=== PATIENT | male | born 1950 | race Caucasian/White ===

== ENCOUNTER 2017-01-29 20:30 | Emergency (ER) | payer MEDICARE ==
[~2017-01-29] VITALS: Ht 182.8 cm; Wt 113.4 kg
--- NOTE | ~2017-01-29 | EKG ---
[place], [place] ELECTROCARDIOGRAM REPORT NAME: NICOLE MEEK UNIT #: [id number] ROOM: DOCTOR: ERIN ALVARES MD BIRTHDATE: [birth year] DOS: 01/29/2017 TIME: 2106 hours. Normal sinus rhythm at rate of 77. Voltage criteria for left ventricular hypertrophy. Borderline EKG. ERIN ALVARES MD CM:EKGRPT:ELECTROCARDIOGRAM REPORT [id number] ERIN ALVARES MD
[~2017-01-29 20:30] MED LIST: FLONASE 0.05% 121 EA NAS; LOPRESSOR25 MG PO; NKHM; SALINE MIST 4545 ML NAS; ZITHROMAX Z PA250 MG PO
[2017-01-29 20:49] LABS: BASO # 0.1 10*3/uL (0.0-0.1); BASO % 0.7 % (0.0-1.0); EOS # 0.3 10*3/uL (0.0-0.4); EOS % 4.6 % (1.0-4.0); HEMATOCRIT 46.6 % (42.0-52.0); HEMOGLOBIN 14.9 g/dl (14.0-18.0); LYMPH # 2.6 10*3/uL (1.3-4.4); LYMPH % 36.4 % (27.0-41.0); MEAN CELL VOLUME 91.7 fl (80.0-94.0); MEAN CORPUSCULAR HGB 29.3 pg (27.0-31.0); MEAN PLATELET VOLUME 10.1 fl (9.6-12.3); MONO # 0.8 10*3/uL (0.1-1.0); MONO % 11.4 % (3.0-9.0); NEUT # 3.3 10*3/uL (2.3-7.9); NEUT % 46.6 % (47.0-73.0); PLATELET COUNT AUTOMATED 153 10*3/uL (130-400); RED BLOOD COUNT 5.08 10*6/uL (4.50-5.90); RED CELL DISTRI WIDTH 15.6 % (0-14.5)
[2017-01-29 20:59] LABS: INTERNATIONAL NORM RATIO 1.1 (2.0-3.5); PROTHROMBIN TIME 11.2 SECONDS (9.0-12.4)
[2017-01-29 21:06] LABS: BUN 13 mg/dl (7-24); CARBON DIOXIDE 25 mmol/L (21-32); CHLORIDE 106 mmol/L (98-107); EST GLOM FILT AFRICAN AMERICAN > 60 ml/min; GLUCOSE 99 mg/dL (65-99); MAGNESIUM 2.6 mg/dL (1.5-2.1); SODIUM 143 mmol/L (136-145)
[2017-01-29 21:07] LABS: TROPONIN I < 0.015 ng/ml (<0.045)
[2017-01-29 22:13] LABS: BILIRUBIN NEGATIVE (NEGATIVE); BLOOD TRACE-INTACT (NEGATIVE); CLARITY CLEAR (CLEAR); COLOR YELLOW (YELLOW); GLUCOSE NEGATIVE (NEGATIVE); KETONE NEGATIVE (NEGATIVE); LEUKO ESTERASE NEGATIVE (NEGATIVE); NITRITE NEGATIVE (NEGATIVE); PROTEIN NEGATIVE (NEGATIVE); SPECIFIC GRAVITY <= 1.005 (1.005-1.030); UROBILINOGEN 0.2 E.U./dl (0.2-1.0)
[2017-01-29 22:23] LABS: URINE AMPHETAMINES < 1000 (1000ng/ml); URINE BARBITURATES < 200 (200ng/ml); URINE COCAINE < 300 (300ng/ml)
[2017-01-29 22:28] LABS: URINE REFLEX COMMENT NO (NO)
[2017-01-29 22:34] VITALS: BP 164/88
== END 2017-01-30 00:13 | disposition short-term general hospital (02) ==
LOC: ED 20:30
PROVIDERS: Student in an Organized Health Care Education/Training Program
DX: I60.9 Nontraumatic subarachnoid hemorrhage, unspecified (principal); Z88.0 Allergy status to penicillin; Z79.899 Other long term (current) drug therapy; X58.XXXA Exposure to other specified factors, initial encounter; Y93.89 Activity, other specified; Y92.89 Other specified places as the place of occurrence of the external cause; Y99.9 Unspecified external cause status

== ENCOUNTER 2017-03-01 06:34 | Inpatient (IN) | payer MEDICARE ==
[~2017-03-01] VITALS: Ht 180.3 cm; Wt 90.7 kg
[2017-03-01] VITALS (9 sets, daily range): BP systolic 106–133; BP diastolic 52–79
--- NOTE | ~2017-03-01 | PROC NOTE ---
[place], [place] PROCEDURE NOTE NAME: NICOLE MEEK UNIT #: [id number] ROOM: 406 DOCTOR: RASTA AYALA MD BIRTHDATE: [birth year] DOS: 03/04/2017 PREOPERATIVE DIAGNOSIS: Malnutrition, need for enteral access. POSTOPERATIVE DIAGNOSIS: Malnutrition, need for enteral access. PROCEDURE: Esophagogastroduodenoscopy with percutaneous endoscopic gastrostomy tube placement (20-Danish). SURGEON: Rasta Ayala MD COMMUNICATIONS ADVISOR: DURAN. ANESTHESIA: MAC. INDICATIONS: This is a 66-year-old gentleman with a history of CVA, malnutrition, need for an enteral access, who is here for the above-mentioned procedure. The procedure and its complications were explained to the patient's son in detail preoperatively. Complications that were discussed included, but were not limited to bleeding, gastric perforation and complications related to the PEG and he agreed to proceed. DESCRIPTION OF PROCEDURE: After identifying the patient, the patient was brought to the endoscopy suite and placed in the supine position. After IV sedation was administered, a timeout procedure was called and a bite block was placed. An adult gastroscope was now passed into the esophagus and advanced into the stomach. There was found to be nonspecific generalized gastritis. With the help of transillumination, part on the anterior abdominal wall was chosen for the placement of PEG. Local anesthesia was infiltrated and a small incision with stab knife was made. A needle was inserted and through the anterior abdominal wall, inserted into the gastric lumen which was visualized directly with the help of an endoscope. A guidewire was passed, which was caught with the help of a snare, placed to the gastroscope and pulled out through the mouth. A 28-Danish gastrostomy tube was passed over the wire and pulled out to the anterior abdominal wall and fixed to the anterior abdominal wall with the help of a flange. It was cut to size and a dressing was placed. Followup endoscopy showed that the PEG was in good position. The scope was withdrawn and the patient was taken to the recovery room in a stable fashion. There were no complications. Dr. Rasta Ayala, the attending endoscopist/surgeon, was present throughout the operating case. [place], [place] PROCEDURE NOTE NAME: NICOLE MEEK UNIT #: [id number] ROOM: [facility] DOCTOR: TARA HERNANDEZ,RASTA BIRTHDATE: [birth year] Rasta Ayala MD CM:PROCNOTE:PROCEDURE NOTE [id number] RASTA AYALA MD
[~2017-03-01 06:34] MED LIST changes: +ACETAMINOPHEN325 M2 PO; +B-1100 M1 NG; +DULCOLAX10 M1 RC; +DUONEB 3 MG/3 ML3 M1 INH; +FLEET ADULT ENEM1 EA R; +FLOMAX0.4 MG PO; +KEPPRA100 MG/M1 NG; +LABETALOL HYDR200 MG NG; +LISINOPRIL5 MG NG; +MILK OF MA400 MG/51 PO; +[UNRECOGNIZED DRUG - OTHER] ID
[2017-03-01] MEDS ORDERED: VITAMINS FOR HA1 CAP NG (06:44)
[2017-03-01] MEDS ORDERED: NYSTATIN CREAM15 GM T (06:45)
[2017-03-01 08:45] LABS: BASO # 0.1 10*3/uL (0.0-0.1); BASO % 0.7 % (0.0-1.0); EOS # 0.4 10*3/uL (0.0-0.4); EOS % 4.2 % (1.0-4.0); HEMATOCRIT 38.6 % (42.0-52.0); HEMOGLOBIN 12.1 g/dl (14.0-18.0); LYMPH # 2.6 10*3/uL (1.3-4.4); LYMPH % 29.3 % (27.0-41.0); MEAN CELL VOLUME 95.1 fl (80.0-94.0); MEAN CORPUSCULAR HGB 29.8 pg (27.0-31.0); MEAN CORPUSCULAR HGB CONC 31.3 g/dl (33.0-37.0); MEAN PLATELET VOLUME 12.8 fl (9.6-12.3); MONO # 0.7 10*3/uL (0.1-1.0); MONO % 7.9 % (3.0-9.0); NEUT # 5.2 10*3/uL (2.3-7.9); NEUT % 57.6 % (47.0-73.0); PLATELET COUNT AUTOMATED 183 10*3/uL (130-400); RED BLOOD COUNT 4.06 10*6/uL (4.50-5.90); RED CELL DISTRI WIDTH 14.9 % (0-14.5)
[2017-03-01 08:57] LABS: INTERNATIONAL NORM RATIO 1.1 (2.0-3.5)
[2017-03-01 09:01] LABS: ALBUMIN 3.2 gm/dl (3.1-4.5); ALKALINE PHOSPHATASE 116 U/L (45-117); BILIRUBIN, TOTAL 0.4 mg/dl (0.2-1.0); BUN 66 mg/dl (7-24); C-REACTIVE PROTEIN 1.02 MG/DL (0-0.3); CARBON DIOXIDE 27 mmol/L (21-32); CHLORIDE 117 mmol/L (98-107); CKMB 0.8 ng/ml (0.5-3.6); CPK 193 U/L (39-308); EST GLOM FILT AFRICAN AMERICAN > 60 ml/min; GLUCOSE 103 mg/dL (65-99); MAGNESIUM 2.9 mg/dL (1.5-2.1); POTASSIUM 4.3 mmol/L (3.5-5.1); SGOT/AST 77 IU/L (3-35); SGPT/ALT 101 U/L (12-78); SODIUM 154 mmol/L (136-145); TOTAL PROTEIN 8.7 gm/dL (6.4-8.2)
[2017-03-01 09:02] LABS: TROPONIN I < 0.015 ng/ml (<0.045)
[2017-03-01 09:19] LABS: BILIRUBIN NEGATIVE (NEGATIVE); BLOOD NEGATIVE (NEGATIVE); CLARITY SL CLOUDY (CLEAR); COLOR YELLOW (YELLOW); GLUCOSE NEGATIVE (NEGATIVE); KETONE NEGATIVE (NEGATIVE); LEUKO ESTERASE NEGATIVE (NEGATIVE); NITRITE NEGATIVE (NEGATIVE); PH 5.5 (5.0-9.0); PROTEIN TRACE (NEGATIVE); SPECIFIC GRAVITY 1.025 (1.005-1.030); UROBILINOGEN 0.2 E.U./dl (0.2-1.0)
[2017-03-01 09:28] LABS: BACTERIA 1+
[2017-03-01 09:29] LABS: HYALINE CAST 21-30; MUCOUS 1+; URINE REFLEX COMMENT NO (NO)
[2017-03-01 18:10] LABS: CKMB 1.1 ng/ml (0.5-3.6); CPK 192 U/L (39-308)
[2017-03-01 18:11] LABS: TROPONIN I < 0.015 ng/ml (<0.045)
[2017-03-01] MEDS ORDERED: LOPRESSOR25 MG PO (18:18)
[2017-03-02] VITALS: BP 145/70
[2017-03-02 00:38] LABS: CKMB 1.1 ng/ml (0.5-3.6); CPK 207 U/L (39-308); TROPONIN I < 0.015 ng/ml (<0.045)
[2017-03-02 06:16] LABS: BASO % 0.4 % (0.0-1.0); EOS # 0.4 10*3/uL (0.0-0.4); EOS % 4.6 % (1.0-4.0); HEMATOCRIT 35.3 % (42.0-52.0); HEMOGLOBIN 10.9 g/dl (14.0-18.0); LYMPH # 2.4 10*3/uL (1.3-4.4); LYMPH % 28.7 % (27.0-41.0); MEAN CELL VOLUME 94.4 fl (80.0-94.0); MEAN CORPUSCULAR HGB 29.1 pg (27.0-31.0); MEAN CORPUSCULAR HGB CONC 30.9 g/dl (33.0-37.0); MEAN PLATELET VOLUME 12.2 fl (9.6-12.3); MONO # 0.8 10*3/uL (0.1-1.0); MONO % 9.4 % (3.0-9.0); NEUT # 4.8 10*3/uL (2.3-7.9); NEUT % 56.7 % (47.0-73.0); PLATELET COUNT AUTOMATED 155 10*3/uL (130-400); RED BLOOD COUNT 3.74 10*6/uL (4.50-5.90); RED CELL DISTRI WIDTH 14.6 % (0-14.5); WHITE BLOOD COUNT 8.4 10*3/uL (4.8-10.8)
[2017-03-02 06:26] LABS: CKMB 0.8 ng/ml (0.5-3.6); CPK 205 U/L (39-308)
[2017-03-02 06:29] LABS: TROPONIN I < 0.015 ng/ml (<0.045)
[2017-03-02 06:41] LABS: INTERNATIONAL NORM RATIO 1.1 (2.0-3.5); PROTHROMBIN TIME 12.2 SECONDS (9.0-12.4)
[2017-03-02 06:41] LABS: BILIRUBIN, TOTAL 0.8 mg/dl (0.2-1.0); CARBON DIOXIDE 28 mmol/L (21-32); CHLORIDE 111 mmol/L (98-107); CHOLESTEROL 105 mg/dL (<200); EST GLOM FILT AFRICAN AMERICAN > 60 ml/min; GLUCOSE 105 mg/dL (65-99); MAGNESIUM 2.5 mg/dL (1.5-2.1); PHOSPHOROUS 3.1 mg/dL (2.5-4.9); POTASSIUM 3.6 mmol/L (3.5-5.1); SGOT/AST 72 IU/L (3-35); SGPT/ALT 93 U/L (12-78); SODIUM 148 mmol/L (136-145)
[2017-03-02 06:48] LABS: ALKALINE PHOSPHATASE 103 U/L (45-117); HDL CHOLESTEROL 31 mg/dl (40-60); LDL CHOLESTEROL 55 mg/dL (9-159); TRIGLYCERIDES 94 mg/dl (<150); VLDL CHOLESTEROL 19 mg/dL (6-40)
[2017-03-02 06:50] LABS: BUN 43 mg/dl (7-24)
[2017-03-02 08:00] VITALS: BP 150/72
[2017-03-02 08:05] LABS: VITAMIN D, 25-HYDROXY 22.5 ng/mL (30-100)
[2017-03-02 08:06] LABS: FOLIC ACID 18.39 ng/mL (>5.38)
[2017-03-02 12:00] VITALS: BP 128/73; BP 142/80
[2017-03-02 15:57] VITALS: BP 127/51
[2017-03-02 20:00] VITALS: BP 126/63
[2017-03-03] VITALS: BP 135/69
[2017-03-03 06:10] LABS: BASO % 0.3 % (0.0-1.0); EOS # 0.3 10*3/uL (0.0-0.4); EOS % 3.6 % (1.0-4.0); HEMATOCRIT 35.4 % (42.0-52.0); HEMOGLOBIN 11.1 g/dl (14.0-18.0); LYMPH # 2.5 10*3/uL (1.3-4.4); LYMPH % 32.1 % (27.0-41.0); MEAN CELL VOLUME 92.7 fl (80.0-94.0); MEAN CORPUSCULAR HGB 29.1 pg (27.0-31.0); MEAN CORPUSCULAR HGB CONC 31.4 g/dl (33.0-37.0); MEAN PLATELET VOLUME 12.5 fl (9.6-12.3); MONO # 0.8 10*3/uL (0.1-1.0); MONO % 9.8 % (3.0-9.0); NEUT # 4.2 10*3/uL (2.3-7.9); NEUT % 53.8 % (47.0-73.0); PLATELET COUNT AUTOMATED 138 10*3/uL (130-400); RED BLOOD COUNT 3.82 10*6/uL (4.50-5.90); RED CELL DISTRI WIDTH 14.2 % (0-14.5); WHITE BLOOD COUNT 7.9 10*3/uL (4.8-10.8)
[2017-03-03 06:26] LABS: ALBUMIN 2.9 gm/dl (3.1-4.5); ALKALINE PHOSPHATASE 106 U/L (45-117); BILIRUBIN, TOTAL 1.2 mg/dl (0.2-1.0); CARBON DIOXIDE 27 mmol/L (21-32); CHLORIDE 105 mmol/L (98-107); EST GLOM FILT AFRICAN AMERICAN > 60 ml/min; GLUCOSE 98 mg/dL (65-99); POTASSIUM 3.4 mmol/L (3.5-5.1); SGOT/AST 75 IU/L (3-35); SGPT/ALT 89 U/L (12-78); SODIUM 140 mmol/L (136-145); TOTAL PROTEIN 7.9 gm/dL (6.4-8.2)
[2017-03-03 06:33] LABS: BUN 26 mg/dl (7-24)
[2017-03-03 08:00] VITALS: BP 148/68
[2017-03-03 12:00] VITALS: BP 138/74
[2017-03-03 16:00] VITALS: BP 135/68
[2017-03-03 20:00] VITALS: BP 133/72
[2017-03-04] VITALS (9 sets, daily range): BP systolic 124–161; BP diastolic 61–87
[2017-03-04 06:03] LABS: BASO % 0.3 % (0.0-1.0); EOS # 0.2 10*3/uL (0.0-0.4); EOS % 3.1 % (1.0-4.0); HEMATOCRIT 34.8 % (42.0-52.0); HEMOGLOBIN 11.3 g/dl (14.0-18.0); LYMPH # 1.9 10*3/uL (1.3-4.4); LYMPH % 25.3 % (27.0-41.0); MEAN CELL VOLUME 93.3 fl (80.0-94.0); MEAN CORPUSCULAR HGB 30.3 pg (27.0-31.0); MEAN CORPUSCULAR HGB CONC 32.5 g/dl (33.0-37.0); MEAN PLATELET VOLUME 12.4 fl (9.6-12.3); MONO # 0.9 10*3/uL (0.1-1.0); MONO % 11.8 % (3.0-9.0); NEUT # 4.4 10*3/uL (2.3-7.9); NEUT % 59.4 % (47.0-73.0); NUCLEATED RED BLOOD CELL 0.3 % (0.0-0.0); PLATELET COUNT AUTOMATED 142 10*3/uL (130-400); RED BLOOD COUNT 3.73 10*6/uL (4.50-5.90); RED CELL DISTRI WIDTH 13.8 % (0-14.5); WHITE BLOOD COUNT 7.4 10*3/uL (4.8-10.8)
[2017-03-04 06:04] LABS: ALKALINE PHOSPHATASE 106 U/L (45-117); CARBON DIOXIDE 28 mmol/L (21-32); CHLORIDE 102 mmol/L (98-107); EST GLOM FILT AFRICAN AMERICAN > 60 ml/min; GLUCOSE 93 mg/dL (65-99); POTASSIUM 3.4 mmol/L (3.5-5.1); SGOT/AST 79 IU/L (3-35); SGPT/ALT 95 U/L (12-78); SODIUM 138 mmol/L (136-145)
[2017-03-04 06:06] LABS: BUN 12 mg/dl (7-24)
[2017-03-05] VITALS (8 sets, daily range): BP systolic 89–152; BP diastolic 49–78
[2017-03-05 06:12] LABS: BASO % 0.2 % (0.0-1.0); EOS # 0.1 10*3/uL (0.0-0.4); EOS % 1.4 % (1.0-4.0); HEMATOCRIT 35.6 % (42.0-52.0); HEMOGLOBIN 11.7 g/dl (14.0-18.0); LYMPH # 1.9 10*3/uL (1.3-4.4); LYMPH % 20.4 % (27.0-41.0); MEAN CORPUSCULAR HGB 29.9 pg (27.0-31.0); MEAN CORPUSCULAR HGB CONC 32.9 g/dl (33.0-37.0); MONO # 1.1 10*3/uL (0.1-1.0); MONO % 11.6 % (3.0-9.0); NEUT % 66.2 % (47.0-73.0); PLATELET COUNT AUTOMATED 142 10*3/uL (130-400); RED BLOOD COUNT 3.91 10*6/uL (4.50-5.90); WHITE BLOOD COUNT 9.1 10*3/uL (4.8-10.8)
[2017-03-05 06:35] LABS: ALKALINE PHOSPHATASE 116 U/L (45-117); BILIRUBIN, TOTAL 0.9 mg/dl (0.2-1.0); BUN 8 mg/dl (7-24); CARBON DIOXIDE 24 mmol/L (21-32); CHLORIDE 102 mmol/L (98-107); EST GLOM FILT AFRICAN AMERICAN > 60 ml/min; GLUCOSE 133 mg/dL (65-99); MAGNESIUM 1.8 mg/dL (1.5-2.1); PHOSPHOROUS 2.4 mg/dL (2.5-4.9); POTASSIUM 3.3 mmol/L (3.5-5.1); SGOT/AST 69 IU/L (3-35); SGPT/ALT 88 U/L (12-78); SODIUM 136 mmol/L (136-145)
[2017-03-06] VITALS: BP 129/63
[2017-03-06 06:07] VITALS: BP 140/67
[2017-03-06 06:45] LABS: ALBUMIN 2.8 gm/dl (3.1-4.5); BUN 9 mg/dl (7-24); CARBON DIOXIDE 25 mmol/L (21-32); CHLORIDE 105 mmol/L (98-107); GLUCOSE 119 mg/dL (65-99); MAGNESIUM 1.8 mg/dL (1.5-2.1); POTASSIUM 3.8 mmol/L (3.5-5.1); SGOT/AST 55 IU/L (3-35); SODIUM 139 mmol/L (136-145)
[2017-03-06 06:51] LABS: ALKALINE PHOSPHATASE 115 U/L (45-117); BILIRUBIN, TOTAL 0.5 mg/dl (0.2-1.0); EST GLOM FILT AFRICAN AMERICAN > 60 ml/min; PHOSPHOROUS 2.5 mg/dL (2.5-4.9); SGPT/ALT 74 U/L (12-78); TOTAL PROTEIN 7.5 gm/dL (6.4-8.2)
[2017-03-06 08:00] VITALS: BP 124/67
[2017-03-06] MEDS ORDERED: [UNRECOGNIZED DRUG - OTHER] PEG (11:34)
== END 2017-03-06 13:10 | disposition other institution (70) | DRG 682 ==
LOC: ED 06:34 → EDHOLD 10:07 → 4E 10:07
PROVIDERS: Emergency Medicine; Family Medicine; Internal Medicine
PROC: 0DH63UZ Insertion of Feeding Device into Stomach, Percutaneous Approach (ICD-10-PCS; principal; 2017-03-04)
DX: N17.0 Acute kidney failure with tubular necrosis (principal); G93.41 Metabolic encephalopathy; E87.0 Hyperosmolality and hypernatremia; E44.0 Moderate protein-calorie malnutrition; I95.9 Hypotension, unspecified; R13.19 Other dysphagia; E86.0 Dehydration; R74.0 Nonspecific elevation of levels of transaminase and lactic acid dehydrogenase [LDH]; D53.9 Nutritional anemia, unspecified; I10 Essential (primary) hypertension; K29.70 Gastritis, unspecified, without bleeding; E55.9 Vitamin D deficiency, unspecified; E87.6 Hypokalemia; Z22.322 Carrier or suspected carrier of Methicillin resistant Staphylococcus aureus; Z86.73 Personal history of transient ischemic attack (TIA), and cerebral infarction without residual deficits; Z88.0 Allergy status to penicillin; Z79.1 Long term (current) use of non-steroidal anti-inflammatories (NSAID); Z79.899 Other long term (current) drug therapy; Z68.29 Body mass index [BMI] 29.0-29.9, adult

== ENCOUNTER 2017-03-19 17:56 | Inpatient (IN) | payer MEDICARE ==
[~2017-03-19] VITALS: Ht 177.8 cm; Wt 94.8 kg
--- NOTE | ~2017-03-19 | PROC NOTE ---
[place], [place] PROCEDURE NOTE NAME: NICOLE MEEK UNIT #: [id number] ROOM: 410 DOCTOR: JUAN GUERRIER BIRTHDATE: [birth year] DOS: 03/21/2017 MODIFIED BARIUM SWALLOW LOCATION: [facility], room 410, bed 1. DOCTOR: Dr. Castillo. RADIOLOGIST: Dr. Fernandes. BACKGROUND INFORMATION: The patient, a 66-year-old male, was seen for modified barium swallow. This test was ordered to determine candidacy for resumption of p.o. intake. This patient has been n.p.o. and fed by PEG tube since 03/04/2017 due to CVA, reports indicate that although he has a PEG tube that he had not been using it at the [facility] rather had been eating by mouth. Further medical history includes right weakness from CVA, hypertension, dehydration, pain in abdomen and acute renal failure and aphasia. For today's assessment, the patient was alert and able to follow commands. He was cooperative throughout the examination. The patient was receiving oxygen via nasal cannula. Oral peripheral examination revealed presence of natural teeth. Lingual, labial, and buccal skills were within functional limits. Volitional swallow was adequate. Volitional cough was weak. METHODS AND MATERIALS USED FOR THE EXAM: The patient was positioned in the lateral plane and the exam was viewed under fluoroscopy. The patient was presented with a variety of consistencies to assess swallowing skills including applesauce mixed with barium presented in half teaspoon amount. Barium-coated cookie presented in bite size piece and thin liquid barium taken by cup and straw. ORAL PHASE: Unremarkable. PHARYNGEAL PHASE: The pharyngeal swallow occurred within a timely manner. During the swallow, laryngeal elevation and epiglottic function were adequate. No penetration or aspiration occurred with any consistency. Some premature loss into the vallecula was noted with thin liquid taken by straw with a mild delay in initiation. ESOPHAGEAL PHASE: This phase of the swallow was not formally assessed during this examination. IMPRESSIONS AND RECOMMENDATIONS: Based upon assessment results, this 66-year-old patient presents with safe tolerance for pureed, solid and thin liquid consistencies. Recommend he resume p.o. feeding with a regular diet and thin liquids. Recommend that he consume thin liquids by cup only with avoidance of straws for safety. Recommend use of universal safe swallow precautions. Follow up therapy is recommended to ensure safety of diet through education and use of safe swallow strategies. Thank you very much for this referral. Should you have any questions regarding [place], [place] PROCEDURE NOTE NAME: NICOLE MEEK UNIT #: [id number] ROOM: 410 DOCTOR: JUAN GUERRIER BIRTHDATE: [birth year] this patient, please contact the speech pathologist at [phone]. JUAN GUERRIER CM:PROCNOTE:PROCEDURE NOTE [id number] JUAN GUERRIER
[2017-03-19 17:56] VITALS: BP 120/59
[~2017-03-19 17:56] MED LIST changes: +NYSTATIN CREAM15 GM T; +VITAMINS FOR HA1 CAP NG; +[UNRECOGNIZED DRUG - OTHER] PEG
[2017-03-19] MEDS ORDERED: MULTIPLE VITAMI1 TA3 PO (18:21)
[2017-03-19] MEDS ORDERED: Peridex 473 ML473 ML PO (18:22)
[2017-03-19] MEDS ORDERED: THIAMINE HCL100 MG PO (18:23)
[2017-03-19] MEDS ORDERED: TYLENOL325 M1 PO (18:23)
[2017-03-19 18:48] LABS: BASO % 0.3 % (0.0-1.0); EOS # 0.1 10*3/uL (0.0-0.4); EOS % 0.5 % (1.0-4.0); HEMATOCRIT 32.8 % (42.0-52.0); HEMOGLOBIN 10.5 g/dl (14.0-18.0); LYMPH # 1.9 10*3/uL (1.3-4.4); LYMPH % 17.6 % (27.0-41.0); MEAN CELL VOLUME 92.4 fl (80.0-94.0); MEAN CORPUSCULAR HGB 29.6 pg (27.0-31.0); MONO # 1.3 10*3/uL (0.1-1.0); MONO % 12.4 % (3.0-9.0); NEUT # 7.3 10*3/uL (2.3-7.9); NEUT % 68.8 % (47.0-73.0); PLATELET COUNT AUTOMATED 155 10*3/uL (130-400); RED BLOOD COUNT 3.55 10*6/uL (4.50-5.90); RED CELL DISTRI WIDTH 15.1 % (0-14.5); WHITE BLOOD COUNT 10.5 10*3/uL (4.8-10.8)
[2017-03-19 19:04] LABS: ALBUMIN 3.1 gm/dl (3.1-4.5); ALKALINE PHOSPHATASE 80 U/L (45-117); BILIRUBIN, DIRECT 0.3 mg/dL (0.0-0.2); BUN 18 mg/dl (7-24); CARBON DIOXIDE 24 mmol/L (21-32); CHLORIDE 110 mmol/L (98-107); EST GLOM FILT AFRICAN AMERICAN > 60 ml/min; GLUCOSE 108 mg/dL (65-99); POTASSIUM 4.1 mmol/L (3.5-5.1); SGOT/AST 31 IU/L (3-35); SGPT/ALT 39 U/L (12-78); SODIUM 144 mmol/L (136-145); TOTAL PROTEIN 7.7 gm/dL (6.4-8.2)
[2017-03-19 19:19] VITALS: BP 109/57
[2017-03-19 22:20] LABS: BILIRUBIN 1+ (NEGATIVE); BLOOD TRACE-INTACT (NEGATIVE); CLARITY SL CLOUDY (CLEAR); COLOR YELLOW (YELLOW); GLUCOSE NEGATIVE (NEGATIVE); KETONE TRACE (NEGATIVE); LEUKO ESTERASE NEGATIVE (NEGATIVE); NITRITE NEGATIVE (NEGATIVE); PH 5.5 (5.0-9.0); PROTEIN 1+ (NEGATIVE); SPECIFIC GRAVITY 1.015 (1.005-1.030)
[2017-03-19 22:35] LABS: BACTERIA 1+; EPITHELIAL CELLS 0-2; MUCOUS TRACE; RBC 0-2 rbc/hpf (0-2); URINE REFLEX COMMENT YES (NO)
[2017-03-19 23:39] VITALS: BP 127/73
[2017-03-20] VITALS: BP 153/63
[2017-03-20] MEDS ORDERED: NYSTATIN OINTME30 GM PO (00:33)
[2017-03-20 00:45] LABS: CPK 173 U/L (39-308)
[2017-03-20 00:48] LABS: CKMB < 0.5 ng/ml (0.5-3.6)
[2017-03-20 06:26] LABS: BASO % 0.2 % (0.0-1.0); EOS # 0.1 10*3/uL (0.0-0.4); EOS % 0.7 % (1.0-4.0); HEMATOCRIT 29.4 % (42.0-52.0); HEMOGLOBIN 9.5 g/dl (14.0-18.0); LYMPH # 1.6 10*3/uL (1.3-4.4); LYMPH % 19.8 % (27.0-41.0); MEAN CORPUSCULAR HGB 30.1 pg (27.0-31.0); MEAN CORPUSCULAR HGB CONC 32.3 g/dl (33.0-37.0); MEAN PLATELET VOLUME 10.2 fl (9.6-12.3); MONO % 11.8 % (3.0-9.0); NEUT # 5.4 10*3/uL (2.3-7.9); NEUT % 67.3 % (47.0-73.0); PLATELET COUNT AUTOMATED 123 10*3/uL (130-400); RED BLOOD COUNT 3.16 10*6/uL (4.50-5.90); RED CELL DISTRI WIDTH 14.8 % (0-14.5); WHITE BLOOD COUNT 8.1 10*3/uL (4.8-10.8)
[2017-03-20 06:35] LABS: INTERNATIONAL NORM RATIO 1.3 (2.0-3.5); PROTHROMBIN TIME 13.5 SECONDS (9.0-12.4)
[2017-03-20 06:43] LABS: CKMB < 0.5 ng/ml (0.5-3.6); CPK 126 U/L (39-308)
[2017-03-20 06:59] LABS: ALBUMIN 2.5 gm/dl (3.1-4.5); BILIRUBIN, TOTAL 1.1 mg/dl (0.2-1.0); BUN 14 mg/dl (7-24); CARBON DIOXIDE 24 mmol/L (21-32); CHLORIDE 111 mmol/L (98-107); CHOLESTEROL 79 mg/dL (<200); EST GLOM FILT AFRICAN AMERICAN > 60 ml/min; GLUCOSE 87 mg/dL (65-99); HDL CHOLESTEROL 26 mg/dl (40-60); LDL CHOLESTEROL 40 mg/dL (9-159); PHOSPHOROUS 3.1 mg/dL (2.5-4.9); POTASSIUM 3.8 mmol/L (3.5-5.1); SGOT/AST 27 IU/L (3-35); SGPT/ALT 29 U/L (12-78); SODIUM 143 mmol/L (136-145); TOTAL PROTEIN 6.6 gm/dL (6.4-8.2); TRIGLYCERIDES 66 mg/dl (<150); VLDL CHOLESTEROL 13 mg/dL (6-40)
[2017-03-20 07:05] LABS: ALKALINE PHOSPHATASE 66 U/L (45-117); FREE T4 1.22 ng/dl (0.76-1.46); HEMOGLOBIN A1c 6.2 % (4.8-5.6)
[2017-03-20 07:56] LABS: FOLIC ACID 23.86 ng/mL (>5.38); VITAMIN D, 25-HYDROXY 27.3 ng/mL (30-100)
[2017-03-20 08:00] VITALS: BP 121/67
[2017-03-20 12:00] VITALS: BP 131/58
[2017-03-20] MEDS ORDERED: NYSTATIN CREAM15 GM T (15:45)
[2017-03-20 16:00] VITALS: BP 156/68
[2017-03-20 20:00] VITALS: BP 136/65
[2017-03-21] VITALS: BP 149/70
[2017-03-21 06:54] LABS: BUN 8 mg/dl (7-24); CARBON DIOXIDE 24 mmol/L (21-32); CHLORIDE 107 mmol/L (98-107); EST GLOM FILT AFRICAN AMERICAN > 60 ml/min; GLUCOSE 94 mg/dL (65-99); POTASSIUM 3.2 mmol/L (3.5-5.1); SODIUM 141 mmol/L (136-145)
[2017-03-21 07:58] VITALS: BP 120/54
[2017-03-21 12:00] VITALS: BP 132/56
[2017-03-21 16:00] VITALS: BP 140/60
[2017-03-22] VITALS: BP 159/81
[2017-03-22 07:02] LABS: BASO % 0.4 % (0.0-1.0); EOS # 0.2 10*3/uL (0.0-0.4); EOS % 3.4 % (1.0-4.0); HEMATOCRIT 30.7 % (42.0-52.0); HEMOGLOBIN 9.8 g/dl (14.0-18.0); LYMPH # 1.3 10*3/uL (1.3-4.4); LYMPH % 28.9 % (27.0-41.0); MEAN CELL VOLUME 92.5 fl (80.0-94.0); MEAN CORPUSCULAR HGB 29.5 pg (27.0-31.0); MEAN CORPUSCULAR HGB CONC 31.9 g/dl (33.0-37.0); MEAN PLATELET VOLUME 10.6 fl (9.6-12.3); MONO # 0.5 10*3/uL (0.1-1.0); MONO % 10.1 % (3.0-9.0); NEUT # 2.6 10*3/uL (2.3-7.9); PLATELET COUNT AUTOMATED 131 10*3/uL (130-400); RED BLOOD COUNT 3.32 10*6/uL (4.50-5.90); RED CELL DISTRI WIDTH 14.5 % (0-14.5); WHITE BLOOD COUNT 4.6 10*3/uL (4.8-10.8)
[2017-03-22 07:26] LABS: BUN 6 mg/dl (7-24); CARBON DIOXIDE 28 mmol/L (21-32); CHLORIDE 107 mmol/L (98-107); EST GLOM FILT AFRICAN AMERICAN > 60 ml/min; GLUCOSE 97 mg/dL (65-99); POTASSIUM 3.5 mmol/L (3.5-5.1); SODIUM 143 mmol/L (136-145)
[2017-03-22 08:00] VITALS: BP 138/68
[2017-03-22] MEDS ORDERED: D-1000 185 MG-11 TAB PEG (14:08)
[2017-03-22] MEDS ORDERED: BACTRIM 400 MG-1 TAB PO (14:11)
[2017-03-22] MEDS ORDERED: KEFLEX500 M1 PO (14:11)
== END 2017-03-22 16:45 | disposition other institution (70) | DRG 871 ==
LOC: ED 17:56 → ICCU 23:03 → 4E 23:03 → EDHOLD 23:10 → 4E 23:15
PROVIDERS: Emergency Medicine; Hospitalist; Internal Medicine
PROC: BD11YZZ Fluoroscopy of Esophagus using Other Contrast (ICD-10-PCS; principal; 2017-03-21)
DX: A41.9 Sepsis, unspecified organism (principal); E43 Unspecified severe protein-calorie malnutrition; G93.41 Metabolic encephalopathy; E87.8 Other disorders of electrolyte and fluid balance, not elsewhere classified; D69.6 Thrombocytopenia, unspecified; K94.22 Gastrostomy infection; I11.9 Hypertensive heart disease without heart failure; E86.0 Dehydration; E55.9 Vitamin D deficiency, unspecified; D64.9 Anemia, unspecified; R13.19 Other dysphagia; Z88.0 Allergy status to penicillin; Z86.73 Personal history of transient ischemic attack (TIA), and cerebral infarction without residual deficits; Z87.891 Personal history of nicotine dependence; Z86.14 Personal history of Methicillin resistant Staphylococcus aureus infection; Z79.1 Long term (current) use of non-steroidal anti-inflammatories (NSAID); Z79.899 Other long term (current) drug therapy; Z68.28 Body mass index [BMI] 28.0-28.9, adult

== ENCOUNTER 2017-06-10 14:48 | Emergency (ER) | payer SELFPAY ==
[~2017-06-10 14:48] MED LIST changes: +BACTRIM 400 MG-1 TAB PO; +D-1000 185 MG-11 TAB PEG; +KEFLEX500 M1 PO; +MULTIPLE VITAMI1 TA3 PO; +NYSTATIN OINTME30 GM PO; +Peridex 473 ML473 ML PO; +THIAMINE HCL100 MG PO; +TYLENOL325 M1 PO
[2017-06-10 15:06] VITALS: BP 160/81
[2017-06-10] MEDS ORDERED: LISINOPRIL5 MG PO (15:32)
[2017-06-10] MEDS ORDERED: KEPPRA500 MG PO (15:32)
[2017-06-10] MEDS ORDERED: FLOMAX0.4 MG PO (15:32)
[2017-06-10] MEDS ORDERED: DUONEB 3 MG/3 ML3 M1 INH (15:32)
[2017-06-10] MEDS ORDERED: LABETALOL HCL100 MG PO (15:32)
== END 2017-06-10 15:37 | disposition home or self-care (01) ==
LOC: ED 14:48
DX: Z76.0 Encounter for issue of repeat prescription (principal); Z87.891 Personal history of nicotine dependence; Z79.899 Other long term (current) drug therapy; Z88.0 Allergy status to penicillin

== ENCOUNTER → 2017-06-21 | Outpatient (CLI) | payer MEDICAID ==
[~2017-06-21] MED LIST changes: +KEPPRA500 MG PO; +LABETALOL HCL100 MG PO; +LISINOPRIL5 MG PO
== END | disposition home or self-care (01) ==
LOC: RESCLI 01:47
DX: I10 Essential (primary) hypertension (principal); I69.398 Other sequelae of cerebral infarction; G40.909 Epilepsy, unspecified, not intractable, without status epilepticus; K59.00 Constipation, unspecified; R06.02 Shortness of breath; F10.10 Alcohol abuse, uncomplicated; Z76.89 Persons encountering health services in other specified circumstances

== ENCOUNTER → 2017-10-26 | Outpatient (CLI) | payer MEDICARE, MEDICAID | END | disposition home or self-care (01) | LOC: RESCLI 00:43 | DX: Z76.89 Persons encountering health services in other specified circumstances (principal); I63.8 Other cerebral infarction; E66.9 Obesity, unspecified; N40.0 Benign prostatic hyperplasia without lower urinary tract symptoms; G40.909 Epilepsy, unspecified, not intractable, without status epilepticus; I10 Essential (primary) hypertension; F10.10 Alcohol abuse, uncomplicated; R68.2 Dry mouth, unspecified; F43.20 Adjustment disorder, unspecified; R06.02 Shortness of breath ==

== ENCOUNTER 2020-03-08 18:27 | Inpatient (IN) | payer MEDICARE ==
[~2020-03-08] VITALS: Ht 177.8 cm; Wt 110.4 kg
[~2020-03-08 18:27] MED LIST changes: -KEPPRA100 MG/M1 NG; -LABETALOL HYDR200 MG NG; +LABETALOL HYDR200 MG PO; +LISINOPRIL20 MG PO; -LISINOPRIL5 MG NG
[2020-03-08 18:41] VITALS: BP 129/87
[2020-03-08 19:13] LABS: BASO % 0.7 % (0.0-1.0); EOS # 0.3 10*3/uL (0.0-0.4); HEMATOCRIT 43.3 % (42.0-52.0); LYMPH % 35.5 % (27.0-41.0); MEAN CELL VOLUME 93.3 fl (80.0-94.0); MEAN CORPUSCULAR HGB 29.5 pg (27.0-31.0); MEAN CORPUSCULAR HGB CONC 31.6 g/dl (33.0-37.0); MEAN PLATELET VOLUME 10.3 fl (9.6-12.3); MONO # 0.6 10*3/uL (0.1-1.0); MONO % 9.9 % (3.0-9.0); NEUT # 2.8 10*3/uL (2.3-7.9); NEUT % 48.7 % (47.0-73.0); PLATELET COUNT AUTOMATED 141 10*3/uL (130-400); RED BLOOD COUNT 4.64 10*6/uL (4.50-5.90); RED CELL DISTRI WIDTH 14.6 % (0-14.5); WHITE BLOOD COUNT 5.8 10*3/uL (4.8-10.8)
[2020-03-08 19:21] VITALS: BP 140/82
--- NOTE | 2020-03-08 19:22 | NUR ---
PT STATES HE IS FEELING BETTER HE IS AWAKE ALERT AND ORIENTED MOVING ALL EXTREMITIES . FAMILY AT BEDSIDE. HORACIO JUAREZ RN.
[2020-03-08 19:24] LABS: ACT PARTIAL THROMBO TIME 28.7 SECONDS (20.0-32.1)
[2020-03-08 19:28] LABS: ALBUMIN 3.6 gm/dl (3.1-4.5); ALKALINE PHOSPHATASE 61 U/L (45-117); BUN 20 mg/dl (7-24); CHLORIDE 113 mmol/L (98-107); CREATININE 1.09 mg/dL (0.70-1.30); POTASSIUM 3.8 mmol/L (3.5-5.1); SGOT/AST 36 IU/L (3-35); SGPT/ALT 35 U/L (12-78); SODIUM 142 mmol/L (136-145); TOTAL PROTEIN 7.6 gm/dL (6.4-8.2)
--- NOTE | 2020-03-08 21:22 | NUR ---
REPORT REC'D FROM HORACIO IN ED. AWAITING PT'S ARRIVAL TO FLOOR.
[2020-03-08 21:33] VITALS: BP 152/76
--- NOTE | 2020-03-08 21:33 | NUR ---
A 69, admitted to 5E, under the services of AYAKA Pearson MD with a diagnosis of STROKE-LIKE SYMPTOMS. Chief complaint is DIZZINESS. Patient arrived via stretcher from ER. Monitor applied. Initial assessment completed. Vital signs taken and recorded. AYAKA PEARSON MD notified of admission to the unit. Orders received. See assessment for past medical history, medications and allergies. Patient and/or family oriented to unit. Clothing/patient valuable form completed. MACY CHAVEZ
[2020-03-08] MEDS ORDERED: ARICEPT10 M1 PO (22:30)
--- NOTE | 2020-03-08 22:50 | NUR ---
DR ALEJO NOTIFIED OF ADMISSION TO FLOOR; ADMISSION ORDERS REC'D
--- NOTE | 2020-03-08 23:09 | NUR ---
ORTHOSTATIC BP NEGATIVE
[2020-03-09] VITALS: BP 137/70
--- NOTE | 2020-03-09 03:15 | NUR ---
PT RESTING ON LT SIDE; NO S/S DISTRESS ON ROOM AIR, REG RESPIRATIONS. CALL LIGHT IN REACH. BED ALARM FOR SAFETY.
[2020-03-09 08:00] VITALS: BP 154/76
--- NOTE | 2020-03-09 08:05 | NUR ---
PT SITTING UP IN RECLINER CHAIR. NO DISTRESS NOTED. PT CURRENTLY ALERT AND ORIENTED X3. FLAT AFFECT. SLOW TO RESPOND AT TIMES. SPEECH CLEAR. PT DENIES ANY DIZZINESS. PT DENIES ANY PAIN/DISCOMFORT. 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 WILL CONTINUE TO MONITOR. CALL LIGHT WITHIN REACH. VSS. SEE SHIFT ASSESSMENT.
[2020-03-09 12:00] VITALS: BP 139/81
--- NOTE | 2020-03-09 12:00 | NUR ---
PATIENT UP IN CHAIR. NO DISTRESS NOTED. NO VOICED COMPLAINTS. WILL CONTINUE TO MONITOR. CALL LIGHT WITHIN REACH.
[2020-03-09 16:00] VITALS: BP 145/70
--- NOTE | 2020-03-09 19:50 | NUR ---
PT ASLEEP IN BED. NO S/S OF DISTRESS NOTED. WILL MONITOR. CALL LIGHT IN REACH.
[2020-03-09 20:00] VITALS: BP 109/45
[2020-03-10] VITALS: BP 139/76
--- NOTE | 2020-03-10 01:54 | NUR ---
PT ASLEEP IN BED. NO S/S OF DISTRESS NOTED. WILL MONITOR. CALL LIGHT IN REACH.
--- NOTE | 2020-03-10 01:55 | NUR ---
PT ASLEEP IN BED. NO S/S OF DISTRESS NOTED. WILL MONITOR. CALL LIGHT IN REACH.
[2020-03-10 05:51] LABS: BASO # 0.1 10*3/uL (0.0-0.1); BASO % 0.8 % (0.0-1.0); EOS # 0.4 10*3/uL (0.0-0.4); HEMATOCRIT 44.7 % (42.0-52.0); LYMPH # 2.5 10*3/uL (1.3-4.4); MEAN CELL VOLUME 93.9 fl (80.0-94.0); MEAN CORPUSCULAR HGB 29.2 pg (27.0-31.0); MEAN CORPUSCULAR HGB CONC 31.1 g/dl (33.0-37.0); MEAN PLATELET VOLUME 10.6 fl (9.6-12.3); MONO # 0.9 10*3/uL (0.1-1.0); MONO % 11.9 % (3.0-9.0); NEUT # 3.4 10*3/uL (2.3-7.9); PLATELET COUNT AUTOMATED 140 10*3/uL (130-400); RED BLOOD COUNT 4.76 10*6/uL (4.50-5.90); RED CELL DISTRI WIDTH 14.3 % (0-14.5); WHITE BLOOD COUNT 7.3 10*3/uL (4.8-10.8)
[2020-03-10 05:53] LABS: BUN 20 mg/dl (7-24); CHLORIDE 107 mmol/L (98-107); CREATININE 1.03 mg/dL (0.70-1.30); POTASSIUM 3.8 mmol/L (3.5-5.1); SODIUM 140 mmol/L (136-145)
--- NOTE | 2020-03-10 06:05 | NUR ---
MRI PAPER REVIEWED WITH PATIENT. PT SIGNED FORM. PT IS ALERT & ORIENTED X3. SPEECH SLOW-WITH OCCASIONAL STUTTER. DENIES ANY HX OF SEIZURES, BUT IS ON KEPPRA. NO HISTORY OF SEIZURES NOTED IN H&P.
--- NOTE | 2020-03-10 07:30 | NUR ---
PT TO MRI
--- NOTE | 2020-03-10 07:38 | NUR ---
patient not available for echo. off the floor for other testing.
[2020-03-10 08:00] VITALS: BP 146/77
--- NOTE | 2020-03-10 08:28 | NUR ---
PT RETURN FROM MRI/ULTRASOUND
--- NOTE | 2020-03-10 08:35 | NUR ---
Shift chart check completed.
[2020-03-10 09:14] VITALS: BP 140/72
--- NOTE | 2020-03-10 10:30 | NUR ---
ECHO AT BEDSIDE
--- NOTE | 2020-03-10 11:00 | NUR ---
Recruiter Specialist in to see patient. He is currently having an echo completed at bedside. Will follow up at a later time.
[2020-03-10 12:00] VITALS: BP 113/68
--- NOTE | 2020-03-10 14:30 | NUR ---
Digital Camera Technician in to talk to patient. Patient states lives at home with his sister. There are 16 steps in the home. Physician: Dr. Obdulio Funes [facility]: [facility] Home health services: none Patient's level of ADLs: INDEPENDENT Patient has working utilities: yes DME: none Follow-up physician's appointment after d/c: he prefers to make his own follow up appt after discharge Does patient want to access PORTAL?: no Discharge plan discussed with patient. He lives at home with his sister. He states he is independent in his ADLs and ambulation. Discussed home health care services and he denies any home needs at this time. When medically stable he will be discharged to home. He states his sister will provide transportation on discharge. PORFIRIO DE
[2020-03-10 16:00] VITALS: BP 137/70
[2020-03-10 19:59] VITALS: BP 118/47
[2020-03-11 00:04] VITALS: BP 126/60
--- NOTE | 2020-03-11 02:11 | NUR ---
PT ASLEEP IN BED. RESPIRATIOND EASY. NO S/S OF DISTRESS NOTED. WILL MONITOR. CALL LIGHT IN REACH.
[2020-03-11 08:00] VITALS: BP 115/57
--- NOTE | 2020-03-11 08:31 | NUR ---
Discussed continuation/discontinuation of telemetry with Dr. Plata. Telemetry to be discontinued.
--- NOTE | 2020-03-11 12:37 | NUR ---
Discharge instructions reviewed with patient/family. Patient receptive and verbalizes understanding. Follow-up care arranged. Written instructions given to patient/family. LATA RICHARD
== END 2020-03-11 12:37 | disposition home or self-care (01) | DRG 93 ==
LOC: ED 18:27 → EDHOLD 20:58 → 5E 20:58
PROVIDERS: Emergency Medicine; Internal Medicine; ADMIT Internal Medicine
DX: R29.90 Unspecified symptoms and signs involving the nervous system (principal); E55.9 Vitamin D deficiency, unspecified; I11.9 Hypertensive heart disease without heart failure; R13.19 Other dysphagia; I69.30 Unspecified sequelae of cerebral infarction; Z87.891 Personal history of nicotine dependence; Z88.0 Allergy status to penicillin; Z79.899 Other long term (current) drug therapy; Z93.1 Gastrostomy status

== ENCOUNTER 2022-09-16 15:12 | Emergency (ER) | payer MEDICARE ==
[~2022-09-16] VITALS: Wt 127.2 kg
[~2022-09-16 15:12] MED LIST changes: +ARICEPT10 M1 PO
[2022-09-16 15:56] LABS: BASO % 0.6 % (0.0-1.0); EOS # 0.2 10*3/uL (0.0-0.4); EOS % 4.5 % (1.0-4.0); HEMATOCRIT 46.6 % (42.0-52.0); LYMPH % 39.1 % (27.0-41.0); MEAN CELL VOLUME 92.1 fl (80.0-94.0); MEAN CORPUSCULAR HGB 29.6 pg (27.0-31.0); MEAN CORPUSCULAR HGB CONC 32.2 g/dl (33.0-37.0); MEAN PLATELET VOLUME 10.4 fl (9.6-12.3); MONO # 0.4 10*3/uL (0.1-1.0); MONO % 8.4 % (3.0-9.0); NEUT # 2.4 10*3/uL (2.3-7.9); NEUT % 47.2 % (47.0-73.0); PLATELET COUNT AUTOMATED 106 10*3/uL (130-400); RED BLOOD COUNT 5.06 10*6/uL (4.50-5.90); RED CELL DISTRI WIDTH 14.6 % (0-14.5); WHITE BLOOD COUNT 5.1 10*3/uL (4.8-10.8)
[2022-09-16 16:10] LABS: ALKALINE PHOSPHATASE 73 U/L (46-116); BUN 10 mg/dl (9-23); CHLORIDE 107 mmol/L (98-107); CREATININE 0.76 mg/dL (0.70-1.30); LIPASE 39 U/L (12-53); POTASSIUM 3.6 mmol/L (3.4-5.1); SGPT/ALT 24 U/L (10-49); SODIUM 142 mmol/L (136-145); TOTAL PROTEIN 7.6 gm/dL (6.0-8.0)
[2022-09-16 16:15] LABS: ACT PARTIAL THROMBO TIME 30.8 SECONDS (20.0-32.1); INTERNATIONAL NORM RATIO 1.1 (2.0-3.5)
[2022-09-16 18:05] VITALS: BP 142/76
== END 2022-09-16 19:44 | disposition short-term general hospital (02) ==
LOC: ED 15:12
PROVIDERS: Emergency Medicine
DX: I62.9 Nontraumatic intracranial hemorrhage, unspecified (principal); Z88.0 Allergy status to penicillin; Z90.89 Acquired absence of other organs; Z87.891 Personal history of nicotine dependence; F10.10 Alcohol abuse, uncomplicated

== ENCOUNTER → 2024-06-15 | Outpatient (CLI) | payer MEDICARE ==
[2024-06-15 11:26] LABS: BASO # 0.1 10*3/uL (0.0-0.1); BASO % 1.2 % (0.0-1.0); EOS # 0.3 10*3/uL (0.0-0.4); EOS % 4.8 % (1.0-4.0); HEMATOCRIT 44.1 % (42.0-52.0); LYMPH % 33.6 % (27.0-41.0); MEAN CELL VOLUME 92.8 fl (80.0-94.0); MEAN CORPUSCULAR HGB 29.9 pg (27.0-31.0); MEAN CORPUSCULAR HGB CONC 32.2 g/dl (33.0-37.0); MEAN PLATELET VOLUME 9.6 fl (9.6-12.3); MONO # 0.6 10*3/uL (0.1-1.0); MONO % 10.1 % (3.0-9.0); PLATELET COUNT AUTOMATED 133 10*3/uL (130-400); RED BLOOD COUNT 4.75 10*6/uL (4.50-5.90); RED CELL DISTRI WIDTH 14.5 % (0-14.5)
[2024-06-15 12:01] LABS: ALKALINE PHOSPHATASE 66 U/L (46-116); BUN 16 mg/dl (9-23); CHLORIDE 109 mmol/L (98-107); CHOLESTEROL 162 mg/dL (<200); FREE T4 0.97 ng/dl (0.89-1.76); LDL CHOLESTEROL 94 mg/dL (9-159); POTASSIUM 3.7 mmol/L (3.4-5.1); SGPT/ALT 19 U/L (5-49); TOTAL PROTEIN 7.2 gm/dL (6.0-8.0); TRIGLYCERIDES 95 mg/dl (<150)
[2024-06-15 12:06] LABS: VITAMIN D, 25-HYDROXY 29.7 ng/mL (30-100)
== END | disposition home or self-care (01) ==
LOC: LAB 10:42
PROVIDERS: ATTEND Internal Medicine
DX: I10 Essential (primary) hypertension (principal); E55.9 Vitamin D deficiency, unspecified

== ENCOUNTER 2025-05-18 22:28 | Emergency (ER) | payer MEDICARE ==
[~2025-05-18] VITALS: Ht 177.8 cm; Wt 111.6 kg
[2025-05-18 22:44] VITALS: BP 159/61
[2025-05-18] MEDS ORDERED: Tdap Vaccine 0.5 ML SYR (Adult Vaccine) IM ONE (22:55)
[2025-05-18] MEDS ORDERED: CEPHALEXIN 500 MG CAP PO ONE (22:55)
[2025-05-18] MEDS ORDERED: CEPHALEXIN500 M1 PO (23:27)
[2025-05-18] MEDS ORDERED: Bacitracin Zinc 14 GM TUBE T ONE (23:30)
== END 2025-05-19 00:13 | disposition home or self-care (01) ==
LOC: ED 22:28
DX: S80.811A Abrasion, right lower leg, initial encounter (principal); L08.9 Local infection of the skin and subcutaneous tissue, unspecified; Z90.89 Acquired absence of other organs; Z88.0 Allergy status to penicillin; X58.XXXA Exposure to other specified factors, initial encounter; Y93.89 Activity, other specified; Y92.89 Other specified places as the place of occurrence of the external cause; Y99.8 Other external cause status

== ENCOUNTER 2025-06-19 07:33 | Inpatient (IN) | payer MEDICARE ==
[~2025-06-19] VITALS: Ht 177.8 cm; Wt 110.5 kg
[~2025-06-19 07:33] MED LIST changes: +ASPIRIN ADULT L81 M2 PO; +CEPHALEXIN500 M1 PO; +DEXAMETHASONE6 MG PO; +DONEPEZIL HCL10 MG PO; +HYDROCHLOROTH12.5 M3 PO; +MEMANTINE HCL10 MG PO
[2025-06-19] MEDS ORDERED: SODIUM CHLORIDE 0.9% 1,000 ML IV ONE (07:50)
[2025-06-19 07:59] VITALS: BP 140/68
[2025-06-19 08:20] LABS: BASO # 0.0 10*3/uL (0.0-0.1); BASO % 0.5 % (0.0-1.0); EOS # 0.2 10*3/uL (0.0-0.4); EOS % 3.4 % (1.0-4.0); MEAN CELL VOLUME 91.6 fl (80.0-94.0); MEAN CORPUSCULAR HGB 29.7 pg (27.0-31.0); MEAN PLATELET VOLUME 10.4 fl (9.6-12.3); MONO # 0.9 10*3/uL (0.1-1.0); MONO % 14.4 % (3.0-9.0); NEUT # 3.6 10*3/uL (2.3-7.9); NEUT % 59.3 % (47.0-73.0); NUCLEATED RED BLOOD CELL 0.0 % (0.0-0.0); NUCLEATED RED BLOOD CELL 0.0 10*3/uL (0.0-0.0); RED CELL DISTRI WIDTH 14.7 % (0-14.5)
[2025-06-19 08:38] LABS: PLATELET COUNT AUTOMATED 112 10*3/uL (130-400)
[2025-06-19 08:38] LABS: BUN 17 mg/dl (9-23)
[2025-06-19] MEDS ORDERED: IOHEXOL 350 MG/ML 100 ML VIAL IV ONE ×2 (10:35→11:00)
[2025-06-19] MEDS ORDERED: SODIUM CHLORIDE 0.9% 100 ML BAG IV ONE (10:35)
[2025-06-19] MEDS ORDERED: SODIUM CHLORIDE 0.9% 100 ML IV ONE (11:00)
[2025-06-19 11:08] LABS: BILIRUBIN Negative (Negative); BLOOD Negative (Negative); CLARITY Clear (Clear); COLOR Yellow (Yellow); KETONE Negative (Negative); LEUKO ESTERASE Trace (Negative); NITRITE Negative (Negative); PH 8.0 (4.5-8.0); SPECIFIC GRAVITY 1.025 (1.001-1.030); UROBILINOGEN 1.0 E.U./dl (0.0-1.0)
[2025-06-19 11:25] LABS: BACTERIA 2+; MUCOUS 1+
[2025-06-19] MEDS ORDERED: Clopidogrel Hydrogen Sulfate 75 MG TAB PO ONE (11:25)
[2025-06-19] MEDS ORDERED: ASPIRIN 325 MG ENTERIC COATED PO ONE (11:25)
[2025-06-19] MEDS ORDERED: LEVOFLOXACIN 750 MG TAB PO SCH (16:11)
[2025-06-19 16:33] VITALS: BP 140/69
[2025-06-19 21:44] VITALS: BP 153/85
[2025-06-19] MEDS ORDERED: LEVETIRACETAM 500 MG TAB PO SCH (22:00)
[2025-06-19] MEDS ORDERED: DONEPEZIL 10 MG TAB PO SCH (22:00)
[2025-06-20 01:40] VITALS: BP 143/61
[2025-06-20 06:04] LABS: BUN 14 mg/dl (9-23); SGPT/ALT 26 U/L (5-49)
[2025-06-20 06:55] LABS: BASO # 0.1 10*3/uL (0.0-0.1); BASO % 0.8 % (0.0-1.0); EOS # 0.3 10*3/uL (0.0-0.4); EOS % 4.2 % (1.0-4.0); MEAN CELL VOLUME 93.9 fl (80.0-94.0); MEAN CORPUSCULAR HGB 29.9 pg (27.0-31.0); MEAN PLATELET VOLUME 11.0 fl (9.6-12.3); MONO # 0.8 10*3/uL (0.1-1.0); MONO % 12.5 % (3.0-9.0); NEUT # 3.5 10*3/uL (2.3-7.9); NEUT % 54.7 % (47.0-73.0); NUCLEATED RED BLOOD CELL 0.0 % (0.0-0.0); NUCLEATED RED BLOOD CELL 0.0 10*3/uL (0.0-0.0); PLATELET COUNT AUTOMATED 110 10*3/uL (130-400); RED CELL DISTRI WIDTH 14.5 % (0-14.5)
[2025-06-20 08:00] VITALS: BP 112/58
[2025-06-20] MEDS ORDERED: Clopidogrel Hydrogen Sulfate 75 MG TAB PO SCH (10:00)
[2025-06-20] MEDS ORDERED: LISINOPRIL 20 MG TAB PO SCH (10:00)
[2025-06-20] MEDS ORDERED: ASPIRIN 325 MG TAB PO SCH (10:00)
[2025-06-20 12:00] VITALS: BP 127/80
[2025-06-20 16:00] VITALS: BP 129/60
[2025-06-20 22:00] VITALS: BP 138/54
[2025-06-21] VITALS: BP 140/60
[2025-06-21 08:00] VITALS: BP 142/66
[2025-06-21] MEDS ORDERED: ATORVASTATIN CALCIUM 40 MG TABLET PO SCH (10:00)
[2025-06-21 12:00] VITALS: BP 91/52
[2025-06-21] MEDS ORDERED: ATORVASTATIN CA40 M1 PO (13:31)
[2025-06-21] MEDS ORDERED: CLOPIDOGREL75 MG PO (13:31)
[2025-06-21] MEDS ORDERED: LEVOFLOXACIN750 M2 PO (13:31)
== END 2025-06-21 16:40 | disposition home or self-care (01) | DRG 66 ==
LOC: ED 07:33 → EDHOLD 11:33 → 4E 11:33
PROVIDERS: Emergency Medicine; ADMIT Internal Medicine; ATTEND Internal Medicine
DX: I63.9 Cerebral infarction, unspecified (principal); J01.90 Acute sinusitis, unspecified; F10.10 Alcohol abuse, uncomplicated; R29.703 NIHSS score 3; E66.9 Obesity, unspecified; I10 Essential (primary) hypertension; F03.90 Unspecified dementia, unspecified severity, without behavioral disturbance, psychotic disturbance, mood disturbance, and anxiety; G40.909 Epilepsy, unspecified, not intractable, without status epilepticus; Z88.0 Allergy status to penicillin; Z79.899 Other long term (current) drug therapy; Z79.01 Long term (current) use of anticoagulants; Z86.16 Personal history of COVID-19; Z79.2 Long term (current) use of antibiotics; Z93.1 Gastrostomy status; Z87.891 Personal history of nicotine dependence; Y90.0 Blood alcohol level of less than 20 mg/100 ml

== ENCOUNTER 2025-09-12 15:40 | Emergency (ER) | payer MEDICARE ==
[~2025-09-12] VITALS: Ht 177.8 cm; Wt 122.0 kg
[2025-09-12 15:40] VITALS: BP 137/62
[~2025-09-12 15:40] MED LIST changes: +ATORVASTATIN CA40 M1 PO; +CLOPIDOGREL75 MG PO; +LEVOFLOXACIN750 M2 PO
[2025-09-12] MEDS ORDERED: SODIUM CHLORIDE 0.9% 500 ML IV ONE (16:20)
[2025-09-12] MEDS ORDERED: Ondansetron Hydrochloride 4 MG/2 ML VIAL IV ONE (16:20)
[2025-09-12 18:35] LABS: BASO # 0.0 10*3/uL (0.0-0.1); BASO % 0.5 % (0.0-1.0); EOS # 0.3 10*3/uL (0.0-0.4); EOS % 4.3 % (1.0-4.0); MEAN CELL VOLUME 93.3 fl (80.0-94.0); MEAN CORPUSCULAR HGB 30.2 pg (27.0-31.0); MEAN PLATELET VOLUME 9.8 fl (9.6-12.3); MONO # 0.8 10*3/uL (0.1-1.0); MONO % 10.2 % (3.0-9.0); NEUT # 5.2 10*3/uL (2.3-7.9); NEUT % 66.4 % (47.0-73.0); NUCLEATED RED BLOOD CELL 0.0 % (0.0-0.0); NUCLEATED RED BLOOD CELL 0.0 10*3/uL (0.0-0.0); PLATELET COUNT AUTOMATED 144 10*3/uL (130-400); RED CELL DISTRI WIDTH 14.4 % (0-14.5)
[2025-09-12 18:58] LABS: BUN 16 mg/dl (9-23); CPK 426 U/L (34-171); SGPT/ALT 50 U/L (5-49)
[2025-09-12 19:00] LABS: ETHYL ALCOHOL < 3.0 mg/dl (<3)
[2025-09-18] MEDS ORDERED: OXYCODONE HCL5 MG PO (16:51)
== END 2025-09-12 21:05 | disposition home or self-care (01) ==
LOC: ED 15:40
PROVIDERS: Emergency Medicine
DX: S63.501A Unspecified sprain of right wrist, initial encounter (principal); S50.01XA Contusion of right elbow, initial encounter; I10 Essential (primary) hypertension; Z90.89 Acquired absence of other organs; Z88.0 Allergy status to penicillin; Z79.899 Other long term (current) drug therapy; W00.0XXA Fall on same level due to ice and snow, initial encounter; Y93.89 Activity, other specified; Y92.89 Other specified places as the place of occurrence of the external cause; Y99.8 Other external cause status